=== PATIENT | female | born 1970 | race Caucasian/White ===

== ENCOUNTER 2017-02-15 09:50 | Emergency (ER) | payer OTHER ==
[~2017-02-15] VITALS: Ht 157.5 cm; Wt 70.0 kg
[2017-02-15 09:58] VITALS: Ht 157.5 cm; Wt 70.0 kg
[2017-02-15] MEDS ORDERED: LORA5TAB4 PO (10:29)
[2017-02-15] MEDS ORDERED: FLUT9.9S NASAL (10:29)
--- NOTE | 2017-02-15 10:41 | ERD ---
ER Documentation Chief Complaint Date/Time DATE: 02/15/17 TIME: 10:[address] , COUGH , EAR PAIN X 3 DAYS HPI This patient is a 46-year-old female with no significant medical history presenting to the emergency department for sore throat and bilateral ear pain and itching which has been ongoing for the past 3 days. The patient reports history of allergies and these symptoms feel similar to what she has experienced in the past. Currently symptoms are mild. The patient denies any nausea, vomiting, diarrhea, fevers, chills, or other symptoms at this time. ROS All systems reviewed and are negative except as per history of present illness. Medications Home Meds Active Scripts Loratadine* (Claritin*) 5 Mg Tab.rapdis, 5 MG PO DAILY, #30 TAB Prov:SUKUMAR SNOW PA-C 02/15/17 Fluticasone Propionate (Flonase Allergy Relief) 9.9 Ml [place].susp, 2 SPRAY NASAL DAILY, #1 BOTTLE TO EACH NOSTRIL Prov:SUKUMAR SNOW PA-C 02/15/17 FmHx Noncontributory for chief complaint Physical Exam Vitals Vital Signs Date Time Temp Pulse Resp B/P Pulse Ox O2 Delivery O2 Flow Rate FiO2 02/15/17 09:58 98.9 102 18 128/76 98 Physical Exam Const: The patient is resting comfortably in no acute distress. Head: Atraumatic Eyes: Normal Conjunctiva ENT: There appears to be some fluid bubbles in bilateral tympanic membranes but no erythema or bulging. No mastoid tenderness to palpation bilaterally. The throat is slightly erythematous but there is no tonsillar hypertrophy or exudate. There is no uvular shift. Neck: Full range of motion..~ No meningismus. Resp: Clear to auscultation bilaterally Cardio: Regular rate and rhythm, no murmurs Abd: Soft, non tender, non distended. Normal bowel sounds Skin: No petechiae or rashes Back: No midline or flank tenderness Ext: No cyanosis, or edema Neur: Awake and alert Psych: Normal Mood and Affect Procedures/MDM 46-year-old female presents secondary to complaints of sore throat, ear pain, and history of allergies. On physical examination the patient's vitals are within normal limits. Examination of the tympanic membrane's bilaterally reveals some fluid bubbles but no erythema or bulging. There is no mastoid tenderness bilaterally. I doubt strep pharyngitis, retropharyngeal abscess, peritonsillar abscess, sinusitis, otitis media, septicemia, or other emergent conditions. Etiology of the patient's symptoms are most likely allergic. I will prescribe the patient Flonase and Claritin and the patient is to return to the department with any new or worsening symptoms. The patient is to follow-up with her primary care physician. The patient understands the treatment plan and diagnosis. All questions and concerns were addressed and the patient was hemodynamically stable prior to discharge. Departure Diagnosis: Primary Impression: Environmental allergies Additional Impression: Nasal congestion Condition: Fair Patient Instructions: Understanding Nasal Allergies, Nasal Allergies: Related Problems Ref[facility]: [facility] se gu hecho un examen mdico de control que le indica que no est en tana condicin que requiera tratamiento urgente en el Departamento de Emergencia. Un estudio ms profundo y el tratamiento de vogel condicin pueden esperar sin ningn riesgo hasta que usted sea atendida/o en el consultorio de vogel mdico o tana cl hayde. Es responsabilidad suya arreglar tana vivien para el seguimiento del gertrude. MANEJO DE CONDICIONES NO URGENTES EN EL FUTURO 1) Si usted tiene un mdico de atencin primaria: Usted debera llamar a vogel mdico de atencin primaria antes de venir al departamento de emergencia. Despus de las horas de consultorio, vogel doctor o vogel asociado/a est disponible por telfono. El mdico o enfermero de reina en el servicio telefnico puede asesorarle por alexandra medio para atender el problema, o gertrude contrario se puede programar tana vivien. 2) Si usted no tiene un mdico de atencin primaria: Llame al mdico o clnica de referencia que aparece abajo aston las horas de consultorio para hacer tana vivien para que le vean. CLINICAS: [facility] [id number] [facility] [id number] [facility] [phone] [facility] [phone] [facility] [phone] [address] [facility] [phone] [address] Additional Instructions: Follow-up with your primary care physician within 1 week. Return to the emergency department immediately should you have any new or worsening symptoms, uncontrolled fevers, or other unexplained symptoms. Take all medications as directed. SUKUMAR SNOW PA-C Feb 15, 2017 10:41
== END 2017-02-15 10:47 | disposition home or self-care (01) ==
LOC: FTE 09:50
DX: R09.81 Nasal congestion (principal); L29.9 Pruritus, unspecified; R05 Cough; H92.03 Otalgia, bilateral
CPT/HCPCS: 99283

== ENCOUNTER 2018-04-30 10:20 | Emergency (ER) | END 2018-04-30 10:30 | disposition home or self-care (01) ==

== ENCOUNTER 2019-06-07 06:54 | Day surgery (SDC) | payer OTHER ==
[~2019-06-07] VITALS: Ht 157.5 cm; Wt 71.2 kg
[~2019-06-07 06:54] MED LIST: ACET-141 PO; FLUT9.9S NASAL; HYDR-4011 PO; IBUP-1982 PO; LORA5TAB4 PO; ONDA4TAB14 PO
[2019-06-07 08:04] VITALS: Ht 157.5 cm; Wt 71.2 kg
[2019-06-07 09:09] VITALS: BP 131/81; PULSE 89; RESP 16
[2019-06-07] MEDS ORDERED: FENTAnyl 50 MCG/ML VIAL ONE (10:05)
[2019-06-07] MEDS ORDERED: MIDAZOLAM 1 MG/ML 2 ML INJ ONE ×2 (10:05)
[2019-06-07 10:16] VITALS: BP 121/84; RESP 16
== END 2019-06-07 10:29 | disposition home or self-care (01) ==
LOC: GIL 06:54
PROVIDERS: ATTEND Internal Medicine Gastroenterology
DX: Z12.11 Encounter for screening for malignant neoplasm of colon (principal); D12.5 Benign neoplasm of sigmoid colon; D12.3 Benign neoplasm of transverse colon; K64.8 Other hemorrhoids; K64.4 Residual hemorrhoidal skin tags
CPT/HCPCS: 45380; 88305; J2250; J3010; Z7610